=== PATIENT | female | born 2000 | race Caucasian/White ===

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

== ENCOUNTER 2019-03-28 21:21 | Emergency (ER) | payer SELFPAY ==
[~2019-03-28] VITALS: Ht 167.6 cm; Wt 68.9 kg
[~2019-03-28 21:21] MED LIST: AZIT250T6 PO; BENZ100C PO; METH4TAB2 PO
[2019-03-28] MEDS ORDERED: IV NORMAL SALINE 1000ML BAG 1,000 ML IV SCH (21:30)
[2019-03-28 21:39] LABS: BILIRUBIN,URINE NEGATIVE (NEG); CLARITY,URINE CLEAR; COLOR,URINE YELLOW; NITRITE,URINE NEGATIVE (NEG); PH,URINE 6.5; PROTEIN,URINE NEGATIVE (NEG-TRACE); UROBILINOGEN,URINE 0.2 mg/dL (0.2 mg/dL)
[2019-03-28] MEDS ORDERED: KETOROLAC 15 MG/ML VIAL. IVP ONE (21:45)
[2019-03-28] MEDS ORDERED: ACETAMINOPHEN 500 MG TABLET PO ONE (21:45)
[2019-03-28 21:46] LABS: BACTERIA,URINE MODERATE /HPF (0-FEW); RBC,URINE TNTC /HPF (0-2); SQUAMOUS EPITHELIAL CELL,UR MOD /LPF; WBC,URINE >40 /HPF (0-4)
[2019-03-28 21:52] LABS: BASO % 0 % (0-3); EOS # 0.1 x10^3/uL (0.0-0.7); EOS % 1 % (0-3); HEMATOCRIT 28.2 % (36.0-47.0); HEMOGLOBIN 9.1 g/dL (12.0-15.5); LYMPH % 18 % (24-48); MEAN CORPUSCULAR HEMOGLOBIN 24 pg (25-35); MEAN CORPUSCULAR HGB CONC 32 g/dL (31-37); MEAN CORPUSCULAR VOLUME 74 fL (79-100); MONO % 9 % (0-9); NEUT # 8.1 x10^3/uL (1.8-7.7); NEUT % 72 % (31-73); PLATELET COUNT 245 x10^3/uL (140-400); RED BLOOD COUNT 3.81 x10^6/uL (3.50-5.40); RED CELL DISTRIBUTION WIDTH 14.3 % (11.5-14.5); WHITE BLOOD COUNT 11.2 x10^3/uL (4.0-11.0)
[2019-03-28] MEDS ORDERED: cefTRIAXone IV Push 1 GM VIAL. IVP ONE (22:00)
[2019-03-28 22:07] LABS: CALCIUM 8.9 mg/dL (8.5-10.1); CREATININE 0.7 mg/dL (0.6-1.0); GFR 107.8; POTASSIUM 3.5 mmol/L (3.5-5.1)
[2019-03-28 22:11] LABS: ALBUMIN 3.9 g/dL (3.4-5.0); ALBUMIN/GLOBULIN RATIO 0.9 (1.0-1.7); TOTAL BILIRUBIN 0.2 mg/dL (0.2-1.0); TOTAL PROTEIN 8.2 g/dL (6.4-8.2)
[2019-03-28 22:58] VITALS: BP 108/58
--- NOTE | 2019-03-28 22:59 | PHYS DOC ---
Past Medical History Past Medical History: Asthma (RANDY MÁRQUEZ APRN) Past Surgical History: Tonsillectomy, Other Additional Past Surgical Histo: NASAL RECONSTRUCTION (RANDY MÁRQUEZ APRN) Alcohol Use: None Drug Use: None (RANDY MÁRQUEZ APRN) Attending Signature I have participated in the care of this patient and I have reviewed and agree with all pertinent clinical information above including history, exam, and recommendations. (BRANDY CHIANG MD) Adult General Chief Complaint Chief Complaint: ABDOMINAL PAIN HPI HPI Patient is a 18 year old female with history of asthma who presents to the ED today complaining of throbbing intermittent 6 out of 10 right flank pain radiating to the right upper quadrant that began a week ago with dysuria and hematuria. Patient denies any personal history of kidney stones. Denies any [place] vomiting. She reports symptoms got worse this evening hence the reason she came to the ED. (RANDY MÁRQUEZ APRN) Review of Systems Review of Systems Constitutional: Denies fever or chills [] Eyes: Denies change in visual acuity, redness, or eye pain [] HENT: Denies nasal congestion or sore throat [] Respiratory: Denies cough or shortness of breath [] Cardiovascular: No additional information not addressed in HPI [] GI: Reports flank pain radiating to the right upper quadrant, denies nausea, vomiting, bloody stools or diarrhea [] : Reports flank pain and hematuria Musculoskeletal: Denies back pain or joint pain [] Integument: Denies rash or skin lesions [] Neurologic: Denies headache, focal weakness or sensory changes [] All other systems were reviewed and found to be within normal limits, except as documented in this note. (RANDY MÁRQUEZ APRN) Current Medications Current Medications Current Medications Medications (Trade) Dose Ordered Sig/Ivan Start Time Stop Time Status Last Admin Dose Admin Acetaminophen (Tylenol) 1,000 mg 1X ONCE 03/28/19 21:45 03/28/19 21:46 DC 03/28/19 21:52 1,000 MG Ceftriaxone Sodium (Rocephin) 1 gm 1X ONCE 03/28/19 22:00 03/28/19 22:01 DC 03/28/19 22:05 1 GM Ketorolac Tromethamine (Toradol 15mg Vial) 15 mg 1X ONCE 03/28/19 21:45 03/28/19 21:46 DC 03/28/19 21:52 15 MG Sodium Chloride 1,000 ml @ 1,000 mls/hr Q1H 03/28/19 21:30 03/28/19 22:29 DC 03/28/19 21:53 1,000 MLS/HR (BRANDY CHIANG MD) Allergies Allergies Allergies Coded Allergies Type Severity Reaction Last Updated Verified diazepam Adverse Reaction Intermediate "freaked out" 06/26/15 Yes (BRANDY CHIANG MD) Physical Exam Physical Exam Constitutional: Well developed, well nourished, no acute distress, non-toxic appearance. [] HENT: Normocephalic, atraumatic, bilateral external ears normal, oropharynx moist, no oral exudates, nose normal. [] Eyes: PERRLA, EOMI, conjunctiva normal, no discharge. [] Neck: Normal range of motion, no tenderness, supple, no stridor. [] Cardiovascular:Heart rate regular rhythm, no murmur [] Lungs & Thorax: Bilateral breath sounds clear to auscultation [] Abdomen: Bowel sounds normal, soft, no tenderness, no masses, no pulsatile masses. [] Skin: Warm, dry, no erythema, no rash. [] Back: No tenderness, no CVA tenderness. [] Extremities: No tenderness, no cyanosis, no clubbing, ROM intact, no edema. [] Neurologic: Alert and oriented X 3, normal motor function, normal sensory function, no focal deficits noted. [] Psychologic: Affect normal, judgement normal, mood normal. [] (RANDY MÁRQUEZ APRN) Current Patient Data Vital Signs Vital Signs Date Time Temp Pulse Resp B/P (MAP) Pulse Ox O2 Delivery O2 Flow Rate FiO2 03/28/19 21:25 99.5 126 16 135/100 (112) 100 Room Air 99.5 (BRANDY CHIANG MD) Lab Values Laboratory Tests Test 03/28/19 21:30 03/28/19 21:40 Urine Collection Type Unknown Urine Color Yellow Urine Clarity Clear Urine pH 6.5 Urine Specific [place] 1.025 Urine Protein Negative mg/dL (NEG-TRACE) Urine Glucose (UA) Negative mg/dL (NEG) Urine Ketones (Stick) Negative mg/dL (NEG) Urine Blood Large (NEG) Urine Nitrite Negative (NEG) Urine Bilirubin Negative (NEG) Urine Urobilinogen Dipstick 0.2 mg/dL (0.2 mg/dL) Urine Leukocyte Esterase Moderate (NEG) Urine RBC Tntc /HPF (0-2) Urine WBC >40 /HPF (0-4) Urine Squamous Epithelial Cells Mod /LPF Urine Bacteria Moderate /HPF (0-FEW) Urine Mucus Mod /LPF White Blood Count 11.2 x10^3/uL (4.0-11.0) H Red Blood Count 3.81 x10^6/uL (3.50-5.40) Hemoglobin 9.1 g/dL (12.0-15.5) L Hematocrit 28.2 % (36.0-47.0) L Mean Corpuscular Volume 74 fL (79-100) L Mean Corpuscular Hemoglobin 24 pg (25-35) L Mean Corpuscular Hemoglobin Concent 32 g/dL (31-37) Red Cell Distribution Width 14.3 % (11.5-14.5) Platelet Count 245 x10^3/uL (140-400) Neutrophils (%) (Auto) 72 % (31-73) Lymphocytes (%) (Auto) 18 % (24-48) L Monocytes (%) (Auto) 9 % (0-9) Eosinophils (%) (Auto) 1 % (0-3) Basophils (%) (Auto) 0 % (0-3) Neutrophils # (Auto) 8.1 x10^3/uL (1.8-7.7) H Lymphocytes # (Auto) 2.0 x10^3/uL (1.0-4.8) Monocytes # (Auto) 1.0 x10^3/uL (0.0-1.1) Eosinophils # (Auto) 0.1 x10^3/uL (0.0-0.7) Basophils # (Auto) 0.0 x10^3/uL (0.0-0.2) Sodium Level 141 mmol/L (136-145) Potassium Level 3.5 mmol/L (3.5-5.1) Chloride Level 103 mmol/L (98-107) Carbon Dioxide Level 29 mmol/L (21-32) Anion Gap 9 (6-14) Blood Urea Nitrogen 13 mg/dL (7-20) Creatinine 0.7 mg/dL (0.6-1.0) Estimated GFR (Cockcroft-Gault) 107.8 BUN/Creatinine Ratio 19 (6-20) Glucose Level 100 mg/dL (70-99) H Lactic Acid Level 0.6 mmol/L (0.4-2.0) Calcium Level 8.9 mg/dL (8.5-10.1) Total Bilirubin 0.2 mg/dL (0.2-1.0) Aspartate Amino Transferase (AST) 14 U/L (15-37) L Alanine Aminotransferase (ALT) 16 U/L (14-59) Alkaline Phosphatase 76 U/L (46-116) Total Protein 8.2 g/dL (6.4-8.2) Albumin 3.9 g/dL (3.4-5.0) Albumin/Globulin Ratio 0.9 (1.0-1.7) L Laboratory Tests 03/28/19 21:40 Laboratory Tests 03/28/19 21:40 (BRANDY CHIANG MD) EKG EKG [] (RANDY MÁRQUEZ APRN) Radiology/Procedures Radiology/Procedures [] (RANDY MÁRQUEZ APRN) Course & Med Decision Making Course & Med Decision Making Pertinent Labs and Imaging studies reviewed. (See chart for details) This is a 18-year-old female patient presenting to the ED today with right flank pain radiating to the right upper quadrant, symptoms began one week ago. Positive for large amount of leukocytes in her urine as well as large amount of blood. CBC with a WBC of 11.2, CMP would not acute findings. Patient was given IV fluids in the ED, Rocephin and Toradol. Lactic is normal, she was running a temp of 99.5. Discharged to home with cephalexin. Instructed to push fluids. Instructed to take the prescribed antibiotics until completed and follow-up with her own doctor next week. (RANDY MÁRQUEZ APRN) Dragon Disclaimer Dragon Disclaimer This electronic medical record was generated, in whole or in part, using a voice recognition dictation system. (RANDY MÁRQUEZ APRN) Departure Departure Impression: Primary Impression: Pyelonephritis Additional Impression: Fever Disposition: HOME, SELF-CARE Condition: STABLE Referrals: NO PCP (PCP) follow up with your doctor next week Patient Instructions: Pyelonephritis, Adult Additional Instructions: You seen in the emergency room for a kidney infection, we put you on a ntibiotics, ensure you complete them. Follow up with your doctor next week. Come back to the ED at any point symptoms worsen. Please take Tylenol every 4 hours and Motrin every 6 hours as needed for fever. We also gave a prescription for tramadol, take it as needed for pain. Scripts Tramadol Hcl (TRAMADOL HCL) 50 Mg Tablet 50 MG PO Q6HRS PRN for PAIN, #20 TAB Prov: RANDY MÁRQUEZ APRN 03/28/19 Ondansetron (ONDANSETRON ODT) 4 Mg Tab.rapdis 1 TAB PO PRN Q6-8HRS, #16 TAB Prov: RANDY MÁRQUEZ APRN 03/28/19 Cephalexin (CEPHALEXIN) 500 Mg Tablet 1 TAB PO BID, #14 TAB Prov: RANDY MÁRQUEZ APRN 03/28/19 Problem Qualifiers Additional Impression: Fever Fever type: unspecified Qualified Codes: R50.9 - Fever, unspecified RANDY MÁRQUEZ APRN Mar 28, 2019 22:59 BRANDY CHIANG MD Mar 28, 2019 23:20
[2019-03-28] MEDS ORDERED: ONDA4TAB12 PO (23:12)
[2019-03-28] MEDS ORDERED: TRAM50TA PO (23:12)
[2019-03-28] MEDS ORDERED: CEPH500T PO (23:12)
== END 2019-03-28 23:25 | disposition home or self-care (01) ==
LOC: ER 21:21
DX: N12 Tubulo-interstitial nephritis, not specified as acute or chronic (principal); J45.909 Unspecified asthma, uncomplicated; Z88.8 Allergy status to other drugs, medicaments and biological substances
CPT/HCPCS: 36415; 80053; 81001; 83605; 85025; 87086; 96374; 96375; 99284; J0696; J1885; J7030